=== PATIENT | male | born 1970 | race Caucasian/White ===

== ENCOUNTER → 2018-10-06 | Outpatient (REF) | payer OTHER ==
[~2018-10-06] MED LIST: AMOX500T10 PO; CLAR-1 PO; LISI5TAB25 PO; PANT40TA65 PO
[2018-10-06 10:20] LABS: PLATELET COUNT, AUTOMATED 230 K/uL (150-450)
== END ==
PROVIDERS: ATTEND Nurse Practitioner Family
DX: R10.9 Unspecified abdominal pain (principal)
CPT/HCPCS: 82040; 82247; 82310; 82374; 82435; 82565; 82947; 84075; 84132; 84155; 84295; 84450; 84460; 84520; 85025; 86677